=== PATIENT | male | born 1980 | race Caucasian/White ===

== ENCOUNTER 2017-11-24 20:08 | Emergency (ER) | payer OTHER, SELFPAY ==
[2017-11-24 20:10] VITALS: BP 130/69; PULSE 82; RESP 18; TEMP 37.2; O2SAT 99; BMI 27.6
--- NOTE | 2017-11-24 21:15 | ED.DCSUM_ITS ---
- ER Visit Summary Date of Service: 11/24/17 Chief Complaint: Infection left ring finger History of Present Illness: The patient is a [address] Rubio. He is right-hand dominant. 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 He reports that he was in [place] taking the velvet off of the and letters of a deer when he noticed an injury to his left ring finger. He reports that it looked as though it was getting infected so he opened it with a knife. States that it seemed to improve following that. However, today the swelling is gotten much worse. He complains of a throbbing pain is 7 out of 10 at worst and 5 out of 10 currently. Is worsened by movement relieved by rest. Denies any paresthesias distally. No constitutional symptoms. No fever, chills, nausea, or vomiting. Physical Examination: Vitals: Stable. Afebrile. General: Well-nourished and well-developed. Head: Normocephalic atraumatic. Neck: Supple, no lymphadenopathy. No JVD. Nontender. Cardiovascular: Regular rate and rhythm. No murmurs. Respiratory: No respiratory distress. Clear to auscultation bilaterally. Abdominal: Soft, nontender, nondistended, normal bowel sounds. No guarding, rebound, or peritoneal signs. Back: Nontender. Extremities: Left ring finger has soft tissue swelling over the dorsum of his finger that is diffuse. There is erythema to the proximal and middle phalanges. The PIP joint seems to be spared. He has good range of motion with minimal pain. There is no swelling or pain over the palmar surface of his finger. No evidence of a flexor tenosynovitis or felon. He is neurovascular intact distal this.. Skin: Normal color, no rash. Neurologic: Alert and oriented ?3. Cranial nerves II through XII are intact. Normal strength and sensation. Psych: Normal affect. Emergency Department Course and Treatment: Patient was treated with Bactrim and Keflex. He refused pain medications. Treatment Plan: Patient was discussed with Dr. Corrales. He will be discharged on Keflex and Bactrim. Instructed to follow-up in 1-2 days for repeat exam. He does understand that if this is not improving with antibiotics that he may require an incision and drainage. Return to the emergency department for any worsening symptoms. Disposition: To home in improved and stable condition. Impression: 1. Left fourth finger abscess. This note was generated with [employer] dictation software. It may contain incorrect words, spelling, and punctuation that were not noted in review of the chart prior to signing ED Disposition - Plan for ED Patient: Disposition: Home or Assisted Living Chief Complaint: Cellulitis Instructions: ED Staph Infec Abx Tx Only Prescriptions: Hydrocodone Bitart/Apap 5-325 [[place] 5MG-325MG] 1 - 2 tab PO Q4H PRN PRN 3 Days #12 tab PRN Reason: Pain Cephalexin [Keflex] 500 mg PO Q6 #40 capsule Smz/Tmp Ds [Bactrim Ds] 1 tablet PO BID #20 tablet Referrals: Rakesh Rubio DO [Primary Care Provider] - Additional Instructions: Follow-up with Dr. Corrales in 1 day if not improving. In 2 days if you are getting better. His phone number is .
[2017-11-24] MEDS: Cephalexin 500 MG Capsule PO (21:43)
[2017-11-24] MEDS: HYDROcodone Bitartrate/Apap 5/325 Tablet PO (21:43)
[2017-11-24] MEDS: Smz/Tmp Ds Tablet 1 TABLET PO (21:43)
== END 2017-11-24 21:44 | disposition home or self-care (01) ==
PROVIDERS: Emergency Provider Emergency Medicine; Family Provider Family Medicine; PCP Family Medicine
DX: L02.512 Cutaneous abscess of left hand (principal); F17.220 Nicotine dependence, chewing tobacco, uncomplicated
CPT/HCPCS: 99283